=== PATIENT | male | born 1985 | race Two or more races ===

== ENCOUNTER 2024-12-11 00:56 | Emergency (ER) | payer MEDICAID, SELFPAY ==
[2024-12-11 00:57] VITALS: BMI 36.6
[2024-12-11 01:09] VITALS: BP 170/89; PULSE 88; RESP 20; TEMP 37.2; O2SAT 98
--- NOTE | 2024-12-11 01:25 | EDNOTE_ITS ---
ED Skin Abcess FB-RME/HPI General Chief complaint: General Adult/Misc Complain Stated complaint: SPIDER BITE RLQ ABD Time Seen by Provider: 12/11/24 01:05 Arrival date/time: 12/11/24 00:56 This is a case of 39-year-old male who came into the emergency room due to small lump on the right lower quadrant with redness and discharge for 3 days secondary to insect bite possible spider bite due to worsening of the symptoms this patient decided to sought consult here in the emergency room denies any fever or chills denies any abdominal pain nausea or vomiting patient tetanus shot is up-to-date Limitations: no limitations Related Data Previous Rx's ?Medication ?Instructions ?Recorded Hydrocodone/Acetaminophen * (NORCO 1 tab PO Q6H PRN AB DOMINAL PAIN 08/31/14 5/325 *) #20 tabs ibuprofen 600 mg tablet 600 mg PO Q6H PRN pain #30 t abs 06/21/23 clindamycin HCl 300 mg capsule 300 mg PO Q6H #40 caps 12/11/24 doxycycline monohydrate 100 mg 100 mg PO BID #20 caps 12/11/24 capsule mupirocin 2 % topical ointment 1 applic topical BID #2 2 grams 12/11/24 Allergies Allergy/AdvReac Type Severity Reaction Status Date / Time NKA* Allergy Uncoded 12/11/24 01:01 Review of Systems Review of Systems Systems Reviewed: All systems reviewed, normal except as documented Constitutional Constitutional: Reports system reviewed and no additional complaints, except as documented, Reports as per HPI, Denies chills and Denies fever(s) Cardiovascular Cardiovascular: Reports system reviewed and no additional complaints, except as documented and Reports as per HPI Respiratory Respiratory: Reports system reviewed and no additional complaints, except as documented and Reports as per HPI Gastrointestinal Gastrointestinal: Reports system reviewed and no additional complaints, except as documented, Reports as per HPI, Denies abdominal pain, Denies nausea and Denies vomiting Genitourinary Genitourinary: Reports system reviewed and no additional complaints, except as documented and Reports as per HPI Musculoskeletal Musculoskeletal: Reports system reviewed and no additional complaints, except as documented and Reports as per HPI Integumentary/Breasts Skin/Breast: Reports other (Abscess) Neurologic Neurologic: Reports system reviewed and no additional complaints, except as documented and Reports as per HPI Past Medical History Social History SMOKING STATUS: Current some day smoker SUBSTANCE USE: marijuana ED Exam General Limitations: Present no limitations General appearance: Present alert, in no apparent distress and other (Patient is awake alert oriented not in distress nontoxic looking well-hydrated well- nourished) Head Head exam: Present atraumatic, normocephalic and normal inspection Eye Eye exam: Present normal appearance, PERRL and EOMI ENT ENT exam: Present normal exam, normal oropharynx and mucous membranes moist Neck Neck exam: Present normal inspection, full ROM and trachea midline; Absent tenderness Chest Chest inspection: Present normal inspection and symmetric chest wall rise; Absent tenderness Respiratory Respiratory exam: Present normal lung sounds bilaterally; Absent respiratory distress, wheezes, stridor, accessory muscle use or prolonged expiratory phase Cardiovascular Cardiovascular exam: Present regular rate, normal rhythm and normal heart sounds; Absent bradycardia, tachycardia, irregular rhythm or systolic murmur Abdominal Exam Abdominal exam: Present soft, tenderness (Mild tenderness on the right lower quadrant secondary to the wound on the right lower quadrant) and normal bowel sounds; Absent distention, guarding, rebound, rigidity, diminished bowel sounds, hyperactive bowel sounds, hypoactive bowel sounds, organomegaly, trauma, incision, psoas sign, obturator sign, heel tap sign, Hernandes's sign, Rovsing's sign, tenderness at McBurney's Point, ascites, mass, bruit, pulsatile mass, hernia or scar Extremities Exam Extremities exam: Present normal inspection and full ROM Back Exam Back exam: Present normal inspection and full ROM Neurological Exam Neurological exam: Present alert, oriented X3, CN II-XII intact, normal gait and reflexes normal; Absent motor sensory deficit Psychiatric Psychiatric exam: Present normal affect and normal mood Skin Skin exam: Present warm, dry, intact, normal color and other (Noted a 2 cm lump on the right lower quadrant tender to touch with small discharge redness no fluctuance none indurated no cellulitis) Course Quality Measures none Orders Category Date Time Status Clindamycin Vial [Cleocin vial] Med 12/11/24 01:16 Discontinued 600 mg IM X1 ONE Vital Signs Vital signs: Vital Signs Temperature 98.9 F 12/11/24 01:09 Pulse Rate 88 12/11/24 01:09 Respiratory Rate 20 12/11/24 01:09 Blood Pressure 170/89 H 12/11/24 01:09 Pulse Oximetry (%) 98 12/11/24 01:09 Oxygen Delivery Method Room Air 12/11/24 01:09 Patient is afebrile not tachycardic not tachypneic initial BP was 170/80 I rechecked blood pressure of the patient on the left upper arm and noted to be 130/85 oxygen saturation is 98% Skin / Abscess / Foreign Body MDM Narrative MDM Narrative:: This is a case of 39-year-old male who came into the emergency room due to small lump on the right lower quadrant with redness and discharge for 3 days secondary to insect bite possible spider bite due to worsening of the symptoms this patient decided to sought consult here in the emergency room denies any fever or chills denies any abdominal pain nausea or vomiting patient tetanus shot is up-to-date physical examination patient is awake alert oriented not in distress nontoxic looking no signs and symptoms of sepsis dehydration or acute abdomen abdominal exam is benign nonsurgical no guarding no rebound no rigidity patient noted to have a very small tenderness in the right lower quadrant secondary to the abscess negative psoas negative straight or negative Rovsing's negative Rashmi's sign negative CVA tenderness patient noted to have a small 2 cm abscess or lump on the right lower quadrant with redness and discharge no cellulitis no fluctuance nonindurated still hard no indication to perform incision and drainage antibiotic only was given to the patient which patient was given clindamycin here in the emergency room and discharged with clindamycin and doxycycline he was advised to return in 2 days for evaluation of abscess and possible incision and drainage for any worsening symptoms return precaution to the ER was advised Patient was discharged with comfortable condition walking with stable gait. Patient verbalized no further complains explained diagnosis and answered patient question. Patient is comfortable with the proposed management plan including the need to follow up with his/her primary care physician and any specialist if applicable Discussed patient for any urgent condition or worsening sx, He/She needed to go to emergency room immediately or call 911. Patient acknowledge the responsibility to follow up as instructed and to monitor her/his symptoms. For any persistence of the symptoms for more than 3-5 days return precaution advised. Discussed the result of the test and was given printed discharge instruction Patient data External records reviewed:: [facility] previous records Clinical information provided by:: patient Social determinants that could affect healthcare access:: none Patient has the following chronic illnesses:: None How is presenting disease/condition affected by chronic disease/condition?: no chronic disease Evaluation data The following diagnostics were reviewed and interpreted by me:: other (specify) Lab and/or radiology exams considered but not ordered:: None Interpretation Summary: None Medications / Prescriptions Medications or Prescriptions considered but not ordered:: Given Medication administrations:: Medication Administration History Discontinued Medications Clindamycin Phosphate (Clindamycin Phos Inj 150 Mg/Ml Vial 6 Ml) 600 mg IM X1 ONE Stop: 12/11/24 01:17 Given Consultations Consultation(s) initiated? (list below): No Diagnosis Skin/Abscess Differential Diagnosis: abscess of skin or subcutaneous tissue and cellulitis Most likely diagnosis given after review of the tests above:: Cutaneous abscess of the skin of the abdomen secondary to insect bite Admission Indicated Admission indicated?: not indicated Explain why admission is indicated or not indicated:: Not indicated Admission Request Was there a request for admission?: No Admission Attestation Admission request attestation: Not indicated Disposition Plan Disposition Plan: Discharge Discharge Attestation Discharge Attestation: The patient and all family members were given an opportunity to ask questions and understood the discharge instructions. Discharge instructions specifically effects, indications for sooner follow up or return to the emergency department, and the expected course of current diagnosis. Patient condition: Stable Discharge Plan Plan Patient Disposition: HOME (Self Care) Prescriptions/Referrals Prescriptions/Med Rec: New clindamycin HCl 300 mg capsule 300 mg PO Q6H Qty: 40 0RF doxycycline monohydrate 100 mg capsule 100 mg PO BID Qty: 20 0RF mupirocin 2 % ointment 1 applic topical BID Qty: 22 0RF No Action Hydrocodone/Acetaminophen * (NORCO 5/325 *) 1 TAB tablet 1 tab PO Q6H PRN (Reason: ABDOMINAL PAIN) Qty: 20 0RF ibuprofen 600 mg tablet 600 mg PO Q6H PRN (Reason: pain) Qty: 30 0RF Problem List Clinical Impression: Infected insect bite, Abscess of skin of abdomen Patient/Caregiver Discharge Instructions Education Materials: ED Abscess Antibiotic ..., ED Insect Sting/Bite, Infected Additional Instructions: Follow-up with your primary care physician in 2 days for reevaluation return to the emergency room in 2 days for reevaluation and wound check of the abscess worsening symptoms or any emergent concerns such as redness swelling discharge from the wound pain fever chills return to the emergency room immediately or call 911 keep the area clean and dry finish the course of antibiotic Print Language: Danish Stand Alone Forms: Echo Award Info., Patient Portal Info Letter PA/PRODUCT DEVELOPMENT WORKER Supervising Physician PA/PRODUCT DEVELOPMENT WORKER Supervising Physician: Dr evans
[2024-12-11] MEDS: CLINDAMYCIN PHOS INJ 150 MG/ML VIAL 6 ML 600 MG IM (01:30)
== END 2024-12-11 01:33 | disposition home or self-care (01) ==
LOC: SERX 01:35
PROVIDERS: Emergency Provider Family Medicine
DX: S30.861A Insect bite (nonvenomous) of abdominal wall, initial encounter (principal); L02.211 Cutaneous abscess of abdominal wall; W57.XXXA Bitten or stung by nonvenomous insect and other nonvenomous arthropods, initial encounter
CPT/HCPCS: 96372; 99282; J0736